=== PATIENT | male | born 1995 | race Caucasian/White ===

== ENCOUNTER → 2022-05-27 12:57 | Outpatient (CLI) | payer OTHER, SELFPAY ==
--- NOTE | 2022-05-27 | DI.RAD.S_ITS ---
PROCEDURE: FL WRIST INJECTION MR/CT LT INDICATIONS: Sprain of carpal joint of left wrist COMPARISON: None. TECHNIQUE: After informed consent had been obtained, the wrist was examined fluoroscopically, and a site chosen for injection of the radiocarpal compartment from a dorsal approach. Skin was prepped and draped in a sterile fashion and 1% lidocaine infiltrated from the skin down to the articular surface. A hypodermic needle was then introduced into the articular space and a modest amount of contrast medium was instilled confirming intra-articular needle tip placement. This was followed by approximately 2 mL of a dilute gadolinium solution. Needle was removed and dressing was applied. The patient experienced no complications throughout the procedure and left the fluoroscopic suite in no apparent distress. FINDINGS: Fluoroscopic spot images demonstrate intra-articular location to injected iodinated contrast. IMPRESSION: Successful fluoroscopic-guided administration of dilute Gadolinium solution for wrist MR arthrogram. Dictated by: Abdirahman Macdonald M.D. on 05/27/2022 at 15:37 Approved by: Abdirahman Macdonald M.D. on 05/27/2022 at 15:38
--- NOTE | 2022-05-27 | DI.MRI.S_ITS ---
PROCEDURE: MR WRIST LT W CON INDICATIONS: Sprain of carpal joint of left wrist TECHNIQUE: After the administration of 3-4 mL of dilute intra-articular Gadolinium contrast into the radiocarpal compartment, coronal T1 spin echo with fat saturation and T2 fast spin echo with fat saturation, axial T1 spin echo and T2 fast spin echo with fat saturation, sagittal T1 spin echo with and without fat saturation through the wrist. COMPARISON: [facility], , MD WRIST INJECTION MR/CT LT, 05/27/2022, 13:41. FINDINGS: Image quality: Excellent. Bones and cartilage: The carpal bones are normally aligned. No bone marrow contusions or fractures. No evidence for avascular necrosis. Overlying cartilage surfaces appear normal. Carpal ligaments: The scapholunate and lunotriquetral ligaments appear intact, without gadolinium extravasation into the mid-carpal compartment. On sagittal images, the pisohamate ligament appears intact. Triangular fibrocartilage complex: The triangular fibrocartilage disc, with its styloid and foveal lamina, appears intact. No gadolinium extravasation into the distal radioulnar joint. Tendons and soft tissues: The carpal tunnel structures appear normal, including the median nerve. The ulnar nerve appears normal within Guyon's canal. Small amount of fluid within the 2nd and 3rd extensor compartments is most likely related to the arthrogram injection. Mild extensor carpi ulnaris tendinosis. All six extensor tendon compartments demonstrate normal morphology, without pathologic tendon sheath fluid. Mild focal fluid measuring approximately 18 x 10 x 4 mm is seen along the dorsal aspect of the wrists with differential contrast enhancement, possibly representing small amount of loculated joint fluid versus a communicating ganglion cyst. IMPRESSION: 1. Mild extensor carpi ulnaris tendinosis. 2. Focal fluid at the dorsal radial aspect of the wrist overlying the proximal carpal row measuring up to 18 mm could represent a communicating ganglion cyst versus loculated joint fluid. 3. No acute trabecular bone injury. No significant ligament or tendon tearing. No extravasation of contrast material from the radiocarpal compartment. Dictated by: Abdirahman Macdonald M.D. on 05/27/2022 at 15:38 Approved by: Abdirahman Macdonald M.D. on 05/27/2022 at 15:46
== END ==
PROVIDERS: PCP Student in an Organized Health Care Education/Training Program; Referring Provider Orthopaedic Surgery; Visit Provider Orthopaedic Surgery
DX: S63.512A Sprain of carpal joint of left wrist, initial encounter (principal)
CPT/HCPCS: 20605; 73222; 76000

== ENCOUNTER → 2023-01-05 08:02 | Outpatient (CLI) | payer OTHER, SELFPAY ==
--- NOTE | 2023-01-05 | DI.MRI.S_ITS ---
PROCEDURE: MR SHOULDER LT W CON INDICATIONS: INJURY TO LEFT SHOULDER TECHNIQUE: After the administration of 12 mL of dilute intra-articular Gadolinium contrast, oblique coronal T1 and T2 spin echo with fat saturation, oblique sagittal T1 spin echo with and without fat saturation, oblique sagittal T2 fast spin echo with fat saturation, axial T1 spin echo with fat saturation through the shoulder. COMPARISON: None. FINDINGS: Image quality: Excellent. Rotator cuff: Tendinosis and very low-grade articular surface partial-thickness tear involving distal supraspinatus at its insertion on the humeral head is seen. The infraspinatus and subscapularis tendons are intact. No full-thickness rotator cuff tendon rupture. No rotator cuff muscle atrophy on sagittal images. Bones and bursae: Subacute appearing intra-articular fracture involving posterior glenoid is seen with fracture line extending to glenohumeral joint space with mild surrounding edema. No other fracture or dislocation. No acromioclavicular joint degeneration. The acromion demonstrates conventional anatomy, without an os acromiale. Capsule and soft tissues: The labrum and glenohumeral ligaments appear intact. The long head of the biceps tendon demonstrates normal location and morphology. The rotator interval appears normal, without fibrosis. The coracohumeral ligament is of normal thickness. No intra-articular bodies. IMPRESSION: 1. Subacute minimally displaced intra-articular fracture involving posterior glenoid. No other fracture or dislocation. No intra-articular loose bodies. 2. Very low-grade articular surface partial-thickness tear involving distal supraspinatus at its insertion on the humeral head. No full-thickness rotator cuff tendon rupture. No muscle atrophy. 3. No gross focal labral tear. Dictated by: Ricardo Parra M.D. on 01/05/2023 at 15:00 Approved by: Ricardo Parra M.D. on 01/05/2023 at 15:07
--- NOTE | 2023-01-05 | DI.RAD.S_ITS ---
PROCEDURE: FL SHOULDER INJECTION MR/CT LT INDICATIONS: INJURY TO LEFT SHOULDER COMPARISON: None. TECHNIQUE: The indications, alternatives, benefits, risks, and complications of the procedure were explained to the patient. Written informed consent was obtained and placed in the chart. The shoulder was examined fluoroscopically and a site for needle placement chosen for entry into the glenohumeral joint from an anterior approach. The skin was prepped and draped in a sterile fashion, and 1% lidocaine infiltrated from skin down to joint capsule. A spinal needle was inserted into the glenohumeral joint, and a small amount of iodinated contrast media injected to confirm intra-articular placement of the needle tip. This was followed by approximately 12 mL dilute solution of a gadolinium containing MR contrast agent. The needle was removed and a dressing was applied. The patient was given postprocedural instructions and sent to the MR suite for MR imaging. FINDINGS: A single fluoroscopic spot image demonstrates intra-articular location of injected iodinated contrast. IMPRESSION: Successful fluoroscopically guided administration of dilute Gadolinium solution into the shoulder joint for MR arthrogram. Dictated by: Angelito Spears M.D. on 01/05/2023 at 12:09 Approved by: Angelito Spears M.D. on 01/05/2023 at 12:09
== END ==
PROVIDERS: PCP Student in an Organized Health Care Education/Training Program; Referring Provider Student in an Organized Health Care Education/Training Program; Visit Provider Student in an Organized Health Care Education/Training Program
DX: S42.145A Nondisplaced fracture of glenoid cavity of scapula, left shoulder, initial encounter for closed fracture (principal); S46.012A Strain of muscle(s) and tendon(s) of the rotator cuff of left shoulder, initial encounter; X58.XXXA Exposure to other specified factors, initial encounter
CPT/HCPCS: 23350; 73222